=== PATIENT | male | born 1990 | race African-American/Black ===

== ENCOUNTER 2019-01-17 13:39 | Emergency (ER) | payer OTHER ==
[~2019-01-17] VITALS: Ht 175.3 cm; Wt 108.9 kg
[2019-01-17] MEDS ORDERED: LIDOCAINE 1% HCL (LOCAL ANESTH.) INJ 20ML MDV IJ ONE (16:45)
[2019-01-17 17:16] VITALS: BP 130/86
== END 2019-01-17 17:15 | disposition home or self-care (01) ==
LOC: ER 13:39
DX: L02.31 Cutaneous abscess of buttock (principal); F17.210 Nicotine dependence, cigarettes, uncomplicated
CPT/HCPCS: 10060; 99283; J2001